=== PATIENT | female | born 1970 | race Caucasian/White ===

== ENCOUNTER → 2017-01-13 | Outpatient (CLI) | payer BC ==
[2017-01-13 14:18] LABS: Basophils # (A) 0.1 k/uL (0-0.2); Basophils % (A) 1 %; CH 30.8; CHCM 34.5; Eosinophils # (A) 0.2 k/uL (0-0.7); Eosinophils % (A) 2 %; HCT 45.7 % (34.0-46.0); HDW 2.71; HGB 15.2 gm/dL (11.4-16.0); Luc # (Auto) 0.13; Luc % (Auto) 2; Lymphocytes # (A) 2.5 k/uL (1.0-4.8); Lymphocytes % (A) 30 %; MCH 29.8 pg (25.0-35.0); MCHC 33.3 g/dL (31.0-37.0); MCV 89.5 fL (80.0-100.0); Mean Platelet Volume 7.4; Monocytes # (A) 0.5 k/uL (0-1.0); Monocytes % (A) 6 %; Neutrophils # (A) 5.1 k/uL (1.3-7.7); Neutrophils % (A) 61 %; RBC 5.11 m/uL (3.80-5.40); RDW 14.3 % (11.5-15.5); WBC 8.5 k/uL (3.8-10.6); WBC (Perox) 8.44
[2017-01-13 14:30] LABS: ALT 42 U/L (9-52); AST 20 U/L (14-36); Alkaline Phosphatase 94 U/L (38-126); Anion Gap 10 mmol/L; Blood Urea Nitrogen 13 mg/dL (7-17); Calcium 9.8 mg/dL (8.4-10.2); Carbon Dioxide 25 mmol/L (22-30); Chloride 107 mmol/L (98-107); Glucose 87 mg/dL (74-99); Non-African American GFR(MDRD) >60 (>60 ml/min/1.73 sqM); Potassium 4.3 mmol/L (3.5-5.1); Sodium 142 mmol/L (137-145); Total Bilirubin 0.6 mg/dL (0.2-1.3); Total Protein 6.9 g/dL (6.3-8.2)
[2017-01-13 14:47] LABS: Follicle Stimulating Hormone 1.9 mIU/mL
== END | disposition home or self-care (01) ==
LOC: LABWHC1 13:35
PROVIDERS: ATTEND Family Medicine
DX: Z00.00 Encounter for general adult medical examination without abnormal findings (principal); E66.3 Overweight
CPT/HCPCS: 36415; 80053; 83001; 83002; 83525; 84443; 85025

== ENCOUNTER → 2017-07-28 | Outpatient (CLI) | payer BC ==
--- NOTE | 2017-07-28 09:12 | US ---
EXAMINATION TYPE: US transvaginal DATE OF EXAM: 07/28/2017 COMPARISON: NONE CLINICAL HISTORY: N92.0 EXCESSIVE AND FREQUENT MENSURATION. Ablation about 6-7 years ago. TECHNIQUE: Transvaginal (TV) Date of LMP: 07/21/2017 EXAM MEASUREMENTS: Uterus: 8.2 x 3.7 x 4.6 cm Endometrial Stripe: 0.3 cm Right Ovary: 2.4 x 0.8 x 1.0 cm Left Ovary: 2.6 x 1.1 x 1.6 cm 1. Uterus: Anteverted Bulky and heterogenous 2. Endometrium: wnl 3. Right Ovary: wnl 4. Left Ovary: Cystic area visualized in the left adnexa measuring 2.3 x 1.4 x 2.2 cm, possible pedu nculated ovarian cyst vs other 5. Bilateral Adnexa: See above 6. Posterior cul-de-sac: wnl IMPRESSION: 1. There is a 2.3 cm lesion in the left adnexa most likely related to left ovary and related to a cys t. Follow-up in 6-8 weeks could be obtained for resolution. 2. The uterus is bulky and heterogeneous in appearance which is nonspecific. No focal fibroids are se en but diffuse fibroid change change may occasionally present with this appearance. Consider MRI foll ow-up.
--- NOTE | 2017-07-29 13:55 | MM ---
Reason for exam: screening (asymptomatic). Last mammogram was performed 1 year and 10 months ago. History: Patient had first child at age 36. Reductions of both breasts, 2011. Took hormonal contraceptives for 15 years. Physical Findings: A clinical breast exam by your physician is recommended on an annual basis and results should be correlated with mammographic findings. MG Screening Mammo w CAD Bilateral CC and MLO view(s) were taken. Prior study comparison: September 16, 2015, bilateral MG screening mammo w CAD. July 06, 2011, CAD bilateral diagnostic mammogram. There are scattered fibroglandular densities. No significant changes when compared with prior studies. ASSESSMENT: Negative, BI-RAD 1 RECOMMENDATION: Routine screening mammogram of both breasts in 1 year.
== END | disposition home or self-care (01) ==
LOC: RADMAMWWP 07:54
PROVIDERS: ATTEND Family Medicine
DX: Z12.31 Encounter for screening mammogram for malignant neoplasm of breast (principal); N85.9 Noninflammatory disorder of uterus, unspecified; N92.0 Excessive and frequent menstruation with regular cycle
CPT/HCPCS: 76830; 77067

== ENCOUNTER 2022-06-16 10:01 | Emergency (ER) | payer BC ==
[2022-06-16 10:15] VITALS: RESP 20
[2022-06-16] MEDS ORDERED: KETOROLAC 15 MG/ML 1 ML VIAL IVP STA (10:19)
[2022-06-16] MEDS ORDERED: SODIUM CHLORIDE 0.9% 1,000 ML IV STA (10:19)
[2022-06-16 10:20] VITALS: TEMP 99.8
--- NOTE | 2022-06-16 10:31 | ED ---
General Adult HPI - General Chief complaint: Upper Respiratory Infection Stated complaint: FLU Time Seen by Provider: 06/16/22 10:08 Source: patient, EMS, RN notes reviewed Mode of arrival: EMS Limitations: no limitations - History of Present Illness Initial comments: Patient is a 52-year-old female presenting to the emergency room via EMS with complaints of cough, congestion, nausea and vomiting ongoing for approximately 3 days. She reports that she returned from a cruise on Wednesday, 4 days ago. She states that her nausea began the next day and she thought it was residual motion sickness but her present symptoms worsened. Upon arrival to the emergency room her nausea had improved after IV fluids and Zofran from EMS. She reports that she is Covid and flu vaccinated and is unsure of any sick contact but as stated above she was on a cruise. She has had occasional fevers but is unsure of her temperatures. She denies any atypical chest pain, shortness of breath not related to cough, abdominal pain not related to nausea, diarrhea, headache is not related to cough, dizziness, or altered mental status. She does not take any medications on a regular basis and has not taken any medications this morning with the exception of medications given by EMS. She has no significant past medical history except for seasonal allergies which she takes allergy shots for. - Related Data Allergies Allergy/AdvReac Type Severity Reaction Status Date / Time sea Allergy Unknown Uncoded 06/16/22 10:16 Review of Systems ROS Statement: Those systems with pertinent positive or pertinent negative responses have been documented in the HPI. ROS Other: All systems not noted in ROS Statement are negative. Past Medical History Past Medical History: No Reported History History of Any Multi-Drug Resistant Organisms: None Reported Past Surgical History: Section Additional Past Surgical History / Comment(s): Breast reduction Past Psychological History: No Psychological Hx Reported Smoking Status: Never smoker Past Alcohol Use History: Occasional Past Drug Use History: None Reported General Exam - General Exam Comments Initial Comments: GENERAL: No acute distress, alert. HEENT: Normocephalic, atraumatic. Pupils equal, round, reactive to light. Moist mucous membranes. LUNGS: No respiratory distress. Clear to auscultation, no adventitious sounds, no use of accessory muscles. HEART: Regular rhythm, mild tachycardia without murmur, rub, or gallop. ABDOMEN: Normal bowel sounds. Soft, non-tender, non-distended. BACK: Normal inspection. EXTREMITIES: No edema. No tenderness. Moves all extremities. NEUROLOGIC: Alert & oriented x 3. CN II-XII grossly intact. PSYCHIATRIC: Normal affect and behavior. DERMATOLOGIC: Skin intact, without rashes or lesions noted. Course Vital Signs 06/16/22 06/16/22 10:07 10:19 Temperature 98.7 F 99.8 F H Pulse Rate 113 H Respiratory 20 Rate Blood Pressure 177/89 O2 Sat by Pulse 95 Oximetry Medical Decision Making - Medical Decision Making Was pt. sent in by a medical professional or institution? @ -No Did you speak to anyone other than the patient for history? @ -EMS notes reviewed. Did you review nursing and triage notes? @ -Yes and agree. Were old charts reviewed? @ -EMS record. Differential Diagnosis? @ -Differential Fever: Pneumonia, viral URI, endocarditis, myocarditis, pericarditis, otitis, sinusitis, peritonsillar Abscess, retropharyngeal Abscess, epiglottitis, peritonitis, appendicitis, Veronica cystitis, diverticulitis, hepatitis, colitis, UTI, PID, TOA, pyelonephritis, prostatitis, epididymitis, meningitis, encephalitis, pulmonary embolism, CVA, thyroid storm, pancreatitis, adrenal crisis, cavernous sinus thrombosis, this is not meant to be an all-inclusive list. EKG interpreted by me (3pts min.)? @ -None X-rays interpreted by me (1pt min.)? @ -None CT interpreted by me (1pt min.)? @ -None U/S interpreted by me (1pt. min.)? @ -None What testing was considered but not performed? (CT, X-rays, U/S, labs)? Why? @Chest x-ray considered and deferred due to no tachypnea or hypoxia with clear lung sounds. CBC and BMP consider due to low-grade temperature and mild tachycardia but deferred due to likely viral in nature. What meds were considered but not given? Why? @ -None Did you discuss the management of the patient with other professionals? @ -No Did you reconcile home meds? @ -Not applicable Was smoking cessation discussed for >3mins.? @ -Not applicable Was critical care preformed (if so, how long)? @ -None Were there social determinants of health that impacted care today? How? (Homelessness, low income, unemployed, alcoholism, drug addiction, transportation, low edu. Level, literacy, decrease access to med. care, shelter, rehab)? @ -No Was there de-escalation of care discussed even if they declined? (Discuss DNR or withdrawal of care, Hospice)? @ -No What co-morbidities impacted this encounter? (DM, HTN, Smoking, COPD, CAD, Cancer, CVA, Hep., AIDS, mental health diagnosis, sleep apnea, morbid obesity)? @ -None Was patient admitted / discharged? @ -Arrival via EMS, 500 mL and Zofran given by EMS. Mild fever and mild tachycardia upon arrival. 1 L fluid bolus and Toradol given for pain fever and hydration. No indication for diagnostic imaging or laboratory studies at this t abram with the exception of cephid swab for viral etiology. Symptomatology better after IV fluid bolus and Toradol. Still with cough. 4-plex positive for COVID, influenza and RSV negative. No indication for further testing or diagnostic studies. Symptom and symptomatic management of COVID discussed with patient and spouse at bedside. Encouraged use of [id number] cough suppressants along with [id number] Tylenol or ibuprofen as needed for pain and fevers. Paxlovid offered and declined. Advised need for to quarantine for 5 days. Will discharge home in stable condition. Undiagnosed new problem with uncertain prognosis? @ -None Drug Therapy requiring intensive monitoring for toxicity (Heparin, Nitro, Insulin, Cardizem)? @ -None Were any procedures done? @ -None Diagnosis/symptom? @ -Covid Acute, or Chronic, or Acute on Chronic? @ -Acute Uncomplicated (without systemic symptoms) or Complicated (systemic symptoms)? @ -Uncomplicated Side effects of treatment? @ -None Exacerbation, Progression, or Severe Exacerbation] @ -No Poses a threat to life or bodily function? @ -No Case discussed with Dr. Mota. - Lab Data Lab Results 06/16/22 Range/Units 10:33 Influenza Type A (PCR) Not Detected (Not Detectd) Influenza Type B (PCR) Not Detected (Not Detectd) RSV (PCR) Not Detected (Not Detectd) SARS-CoV-2 (PCR) Detected A (Not Detectd) Disposition Clinical Impression: COVID-19 Disposition: HOME SELF-CARE Condition: Stable Instructions (If sedation given, give patient instructions): Upper Respiratory Infection (ED), COVID-19 (Coronavirus Disease 2019) (ED) Additional Instructions: Please return to the Emergency Department if symptoms worsen or any other concerns. Please quarantine for 5 days after testing positive and restart quarantine if symptoms worsen. Please utilize Tylenol as needed for fevers and pain. Taking vitamin C, Zinc, vitamin D 50 mcg, and melatonin may help symptom recovery. Is patient prescribed a controlled substance at d/c from ED?: No Referrals: John Granados MD [Primary Care Provider] - 1-2 days Time of Disposition: 12:17
[2022-06-16 12:30] VITALS: BP 156/79; PULSE 97
== END 2022-06-16 12:30 | disposition home or self-care (01) ==
LOC: EC 10:01
DX: U07.1 COVID-19 (principal); Z91.013 Allergy to seafood
CPT/HCPCS: 87636; 99284; 96374; 96361; J1885

== ENCOUNTER 2022-09-23 09:19 | Day surgery (SDC) | payer BC ==
[2022-09-18 13:44] VITALS: BMI 32.0
[~2022-09-23 09:19] MED LIST: LACTATED RINGERS 1,000 ML IV SCH
[2022-09-23 10:08] VITALS: TEMP 98.5
[2022-09-23] MEDS ORDERED: PROPOFOL 10 MG/ML 20 ML VIAL IV ONE (10:16)
--- NOTE | 2022-09-23 10:31 | P.PCN ---
Date of Procedure: 09/23/22 Procedure(s) Performed: BRIEF HISTORY: Patient is a 52-year-old pleasant female scheduled for an elective colonoscopy as a part of screening for colon cancer. PROCEDURE PERFORMED: Colonoscopy with biopsy. PREOPERATIVE DIAGNOSIS: Screening for colon cancer. IV sedation per Anesthesia. PROCEDURE: After informed consent was obtained, the patient, was brought into the endoscopy unit. IV sedation was administered by Anesthesia under continuous monitoring. Digital rectal examination was normal. Initially the Olympus CF-160 flexible video colonoscope was then inserted in the rectum, gradually advanced into the cecum without any difficulty. Careful examination was performed as the scope was gradually being withdrawn. Ileocecal valve and the appendiceal orifice were visualized and appeared normal. Prep was excellent. Mucosa of the cecum, appeared normal. In the ascending colon there was a 3 mm sessile polyp removed by cold biopsy. There was a 5 mm sessile polyp in the descending colon removed by cold biopsy. ~ ascending colon, transverse colon, descending colon, sigmoid colon, and rectum appeared normal. Retroflexion was performed in the rectum and no lesions were seen. The patient tolerated the procedure well. IMPRESSION: 3 mm ascending colon polyp status post cold biopsy 5 mm descending colon polyp status post cold biopsy Rest of the colon appeared normal RECOMMENDATIONS: Findings of this examination were discussed with the patient as well as her family.. She was advised to follow with the biopsy results. If the biopsy results adenoma she can have a repeat colonoscopy in 5 years.
[2022-09-23 11:01] VITALS: BP 112/76; PULSE 70; RESP 20
== END 2022-09-23 11:10 | disposition home or self-care (01) ==
LOC: ORWHC2ENDO 09:19
PROVIDERS: ATTEND Internal Medicine Gastroenterology
DX: Z12.11 Encounter for screening for malignant neoplasm of colon (principal); D12.4 Benign neoplasm of descending colon; J45.909 Unspecified asthma, uncomplicated; Z79.899 Other long term (current) drug therapy
CPT/HCPCS: 81025; 45380; J2704; 88305